=== PATIENT | male | born 1980 | race Native Hawaiian/Other Pacific Islander ===

== ENCOUNTER 2017-12-04 13:49 | Emergency (ER) | payer OTHER ==
[2017-12-04 14:24] VITALS: RESP 20
--- NOTE | 2017-12-04 15:36 | ED PDOC ---
HPI: General Adult Time Seen by Provider: 12/04/17 15:17 Chief Complaint (Nursing): Fever Chief Complaint (Provider): Fever, Headache, Ear Pain, Throat Pain History Per: Patient History/Exam Limitations: no limitations Onset/Duration Of Symptoms: Days (x2) Current Symptoms Are (Timing): Still Present Additional Complaint(s): 37 year old male, visiting from [place], presents to the ED for evaluation of tactile fever, cough, occipital headache, bilateral ear pain, and throat pain onset two days ago. He also reports associated chills and body aches. Patient states that he has been managing his symptoms with Ibuprofen 800 mg with his last dose yesterday night, but returning persistent symptoms prompted his visit. He notes a history of similar headaches secondary to a work related injury two years ago at work. Otherwise, (-) sick contact, (-) nausea, (-) vomiting, (-) visual changes, (-) dizziness, (-) abdominal pain, (-) chest pain , (-) rash, (-) weakness, (-) numbness. PMD: in [place] Past Medical History Reviewed: Historical Data, Nursing Documentation, Vital Signs Vital Signs: Last Vital Signs Temp 98.9 F 12/04/17 20:22 Pulse 75 12/04/17 20:23 Resp 20 12/04/17 20:22 BP 128/77 12/04/17 20:22 Pulse Ox 100 12/06/17 23:04 - Medical History PMH: No Chronic Diseases - Surgical History Surgical History: Hernia Repair - Family History Family History: States: Unknown Family Hx - Social History Current smoker - smoking cessation education provided: No Ex-Smoker (has not smoked in the last 12 months): Yes Alcohol: None Drugs: Denies - Home Medications Home Medications: Ambulatory Orders Medication Instructions Recorded Acetaminophen/Butalbital/Caf 1 tab PO Q6 PRN #12 tab 12/04/17 [Fioricet] Amoxicillin/Clavulanate [Augmentin 1 tab PO BID #14 tab 12/04/17 875 MG-125 MG] Naproxen 500 mg PO BID PRN #20 tab 12/04/17 - Allergies Allergies/Adverse Reactions: Allergies Allergy/AdvReac Type Severity Reaction Status Date / Time No Known Allergies Allergy Verified 12/04/17 14:21 Review of Systems ROS Statement: Except As Marked, All Systems Reviewed And Found Negative Constitutional: Positive for: Fever, Chills, Other (body aches) Eyes: Negative for: Vision Change ENT: Positive for: Ear Pain (bilateral), Throat Pain Cardiovascular: Negative for: Chest Pain Gastrointestinal: Negative for: Nausea, Vomiting, Abdominal Pain Skin: Negative for: Rash Neurological: Positive for: Headache (occipital). Negative for: Weakness, Numbness, Dizziness Physical Exam - Reviewed Nursing Documentation Reviewed: Yes Vital Signs Reviewed: Yes - Physical Exam Comments: GENERAL APPEARANCE: Patient is awake, alert, oriented x 3, appears uncomfortable. SKIN: Warm, dry; (-) cyanosis. EYES: (-) conjunctival pallor. ENMT: Mucous membranes moist. Airway patent: (-) stridor. Pharynx: (-) swelling, (+) erythema, (-) exudate, (-) hypertrophy. Right TM: (+) bulging, (+ ) erythematous. Left TM: unremarkable. (+) maxillary sinus tenderness NECK: Supple, FROM (-) tenderness, (-) stiffness, (-) lymphadenopathy. CHEST AND RESPIRATORY: (-) rhonchi, (-) rales, (-) wheezes; clear to auscultation, breath sounds even and non-labored. Speaking in full sentences. HEART AND CARDIOVASCULAR: (-) irregularity; (-) murmur, (-) gallop. ABDOMEN AND GI: Soft; (-) tenderness (-) guarding (-) distention. EXTREMITIES: (-) deformity NEURO AND PSYCH: Mental status as above. Cranial nerves grossly intact; strength symmetric. EOMI and painless. Tongue ad uvula midline. Speech clear, gait steady. (-) focal deficit (-) facial asymmetry - Laboratory Results Result Diagrams: 12/04/17 17:38 12/04/17 17:38 - ECG O2 Sat by Pulse Oximetry: 100 (RA) Pulse Ox Interpretation: Normal Medical Decision Making Medical Decision Making: Time: 1518 Initial Impression: pharyngitis, otitis media, cough, headache Initial Plan: --CXR --Tylenol 650 mg PO --Throat culture --Rapid strep test 1546 CXR FINDINGS: LUNGS: No active pulmonary disease. PLEURA: No significant pleural effusion identified. No pneumothorax apparent. CARDIOVASCULAR: Normal. OSSEOUS STRUCTURES: No significant abnormalities. VISUALIZED UPPER ABDOMEN: Normal. OTHER FINDINGS: None. IMPRESSION: No active disease. 1620 Patient now reporting nausea with x1 episode of NB/NB vomiting in the ED. Head CT without contrast ordered. IV access established. CMP, CBC with differential ordered. Normal saline 1L ordered along with Zofran 4mg IVP. 174 Patient has persistent vomiting, but denies abdominal pain. Reglan [address] read pending. 1746 CT HEAD FINDINGS: HEMORRHAGE: No intracranial hemorrhage. BRAIN: No mass effect or edema. No atrophy or chronic microvascular ischemic changes. VENTRICLES: Unremarkable. No hydrocephalus. CALVARIUM: Unremarkable. PARANASAL SINUSES: Mild bilateral ethmoid air cell and maxillary sinus mucosal thickening. MASTOID AIR CELLS: Unremarkable as visualized. No inflammatory changes. OTHER FINDINGS: None. IMPRESSION: No acute intracranial pathology. Moderate paranasal sinus disease. Toradol 30mg IVP ordered. 1814 Labs reviewed and grossly unremarkable. Rapid Strep negative. Repeat oral temp: 98.7. 1850 Augmentin PO ordered in light of PE, CT results consistent with sinusitis and otitis media. 194 Patient tolerating PO intake at this time. Reports complete resolution of nausea and improvement of headache, currently rated 08/01. 2009 Repeat HR: 75 Repeat BP: 128/77 Repeat Temp: 98.9 oral On re-evaluation, patient reports improvement of symptoms. On exam, patient remains AAOx3, in no acute distress. Neck is supple, lungs CTA, cardiac RRR, abdomen is soft and non-tender, neuro exam shows no focal findings. VSS, stable for discharge. Diagnostic results d/w the patient in great detail. Dx of migraine headache, nausea/vomiting, sinusitis, otitis media d/w the patient. Based on history, exam and diagnostic results plan will be for discharge and outpatient follow up with PMD upon return to [place]. Advised to follow up with primary care physician as directed. Advised to take medication as prescribed. Return to the emergency room at any time for any new or worsening symptoms. Patient states he fully agrees with and understands discharge instructions. States that he agrees with the plan and disposition. Verbalized and repeated discharge instructions and plan. I have given the patient opportunity to ask any additional questions. Scribe Attestation: Documented by Meghann Jennings, acting as a scribe for Lashay Clemons PA-C. Provider Scribe Attestation: All medical record entries made by the Scribe were at my direction and personally dictated by me. I have reviewed the chart and agree that the record accurately reflects my personal performance of the history, physical exam, medical decision making, and the department course for this patient. I have also personally directed, reviewed, and agree with the discharge instructions and disposition. Disposition - Clinical Impression Clinical Impression: Nausea and vomiting, Migraine headache, Sinusitis, Otitis media - Patient ED Disposition Is Patient to be Admitted: No Counseled Patient/Family Regarding: Studies Performed, Diagnosis, Need For Followup, Rx Given - Disposition Disposition: Routine/Home Disposition Time: 20:12 Condition: STABLE Additional Instructions: FOLLOW UP WITH PMD FOR FURTHER EVALUATION. RETURN TO ED WITH ANY NEW OR WORSENING SYMPTOMS. TAKE MEDICATION PRESCRIBED. Prescriptions: Acetaminophen/Butalbital/Caf [Fioricet] 1 tab PO Q6 PRN #12 tab PRN Reason: Headache Amoxicillin/Clavulanate [Augmentin 875 MG-125 MG] 1 tab PO BID #14 tab Naproxen 500 mg PO BID PRN #20 tab PRN Reason: PAIN, FEVER Instructions: Sinusitis in Adults, Ear Infections (Otitis Media), Nausea and Vomiting, Adult (DC), Migraine Headaches in Adults Forms: [employer] (Armenian) Print Language: TAMAZIGHT - POA Present On Arrival: None Results - Lab Results Lab Results: 12/04/17 12/04/17 12/04/17 17:38 17:38 16:23 WBC 7.9 RBC 4.81 Hgb 15.5 Hct 45.2 MCV 94.0 MCH 32.2 H MCHC 34.2 RDW 13.5 Plt Count 226 MPV 8.4 Neut % (Auto) 68.0 Lymph % (Auto) 19.3 L Pickett % (Auto) 10.5 H Eos % (Auto) 1.2 Baso % (Auto) 1.0 Neut # (Auto) 5.3 Lymph # (Auto) 1.5 Pickett # (Auto) 0.8 Eos # (Auto) 0.1 Baso # (Auto) 0.1 Sodium 138 Potassium 4.4 Chloride 99 Carbon Dioxide 25 Anion Gap 18 BUN 10 Creatinine 0.8 Est GFR ( Amer) > 60 Est GFR (Non-Af Amer) > 60 Random Glucose 107 Calcium 9.4 Total Bilirubin 1.0 AST 47 ALT 61 Alkaline Phosphatase 79 Total Protein 8.3 H Albumin 4.8 Globulin 3.5 Albumin/Globulin Ratio 1.4 Grp A Beta Strep Ag Negative
--- NOTE | 2017-12-04 15:48 | RAD ---
Date of service: 12/04/2017 HISTORY: cough, fever COMPARISON: No prior. TECHNIQUE: Chest PA and lateral FINDINGS: LUNGS: No active pulmonary disease. PLEURA: No significant pleural effusion identified. No pneumothorax apparent. CARDIOVASCULAR: Normal. OSSEOUS STRUCTURES: No significant abnormalities. VISUALIZED UPPER ABDOMEN: Normal. OTHER FINDINGS: None. IMPRESSION: No active disease.
[2017-12-04] MEDS ORDERED: Sodium Chloride 0.9% 1,000 ML IV SCH (16:30)
[2017-12-04 17:44] LABS: BASO # 0.1 K/uL (0.0-0.2); EOS # 0.1 K/uL (0.0-0.7); EOS % 1.2 % (0.0-4.0); HEMOGLOBIN 15.5 g/dL (12.0-18.0); LYMPH # 1.5 K/uL (1.0-4.3); LYMPH % 19.3 % (20.0-40.0); MEAN CORPUSCULAR HEMOGLOBIN 32.2 pg (27.0-31.0); MEAN CORPUSCULAR HGB CONC 34.2 g/dL (33.0-37.0); MEAN PLATELET VOLUME 8.4 fl (7.2-11.7); MONO # 0.8 K/uL (0.0-0.8); MONO % 10.5 % (0.0-10.0); NEUT # 5.3 K/uL (1.8-7.0); RBC 4.81 Mil/uL (4.40-5.90); RED CELL DISTRIBUTION WIDTH 13.5 % (11.5-14.5); WHITE BLOOD COUNT 7.9 K/uL (4.8-10.8)
--- NOTE | 2017-12-04 17:49 | CT ---
Date of service: 12/04/2017 PROCEDURE: CT HEAD WITHOUT CONTRAST. HISTORY: headache, vomiting COMPARISON: None available. TECHNIQUE: Axial computed tomography images were obtained through the head/brain without intravenous contrast. Radiation dose: Total exam DLP = 864.6 mGy-cm. This CT exam was performed using one or more of the following dose reduction techniques: Automated exposure control, adjustment of the mA and/or kV according to patient size, and/or use of iterative reconstruction technique. FINDINGS: HEMORRHAGE: No intracranial hemorrhage. BRAIN: No mass effect or edema. No atrophy or chronic microvascular ischemic changes. VENTRICLES: Unremarkable. No hydrocephalus. CALVARIUM: Unremarkable. PARANASAL SINUSES: Mild bilateral ethmoid air cell and maxillary sinus mucosal thickening. MASTOID AIR CELLS: Unremarkable as visualized. No inflammatory changes. OTHER FINDINGS: None. IMPRESSION: No acute intracranial pathology. Moderate paranasal sinus disease.
[2017-12-04 17:55] LABS: ALB/GLOB RATIO 1.4 (1.0-2.1); ALBUMIN 4.8 g/dL (3.5-5.0); ALT/SGPT 61 U/L (21-72); AST/SGOT 47 U/L (17-59); BLOOD UREA NITROGEN 10 mg/dl (9-20); CALCIUM 9.4 mg/dL (8.4-10.2); GFR AFRICAN-AMERICAN > 60; GFR NON-AFRICAN AMERICAN > 60
[2017-12-04] MEDS ORDERED: Amoxicillin-Clav 875-125 mg Tab PO ONE (20:02)
[2017-12-04 20:23] VITALS: BP 128/77; PULSE 75; TEMP 98.9; O2SAT 100
[2017-12-04] MEDS ORDERED: Amoxicillin-Clav 875-125 mg Tab PO SCH (21:00)
== END 2017-12-04 20:33 | disposition home or self-care (01) ==
LOC: H.ER 13:49
DX: G43.909 Migraine, unspecified, not intractable, without status migrainosus (principal); J32.9 Chronic sinusitis, unspecified; H66.91 Otitis media, unspecified, right ear; R11.2 Nausea with vomiting, unspecified; Z87.891 Personal history of nicotine dependence
CPT/HCPCS: 70450; 71046; 80053; 85025; 87070; 87430; 96374; 96375; 99284; J1885; J2405; J2765; J7030

== ENCOUNTER 2018-04-07 03:52 | Emergency (ER) | payer OTHER ==
[2018-04-07 04:13] VITALS: RESP 16; O2SAT 98
[2018-04-07] MEDS ORDERED: Sodium Chloride 0.9% 1,000 ML IV STA (04:15)
--- NOTE | 2018-04-07 04:31 | ED PDOC ---
HPI: Abdomen Time Seen by Provider: 04/07/18 04:02 Chief Complaint (Nursing): Abdominal Pain Chief Complaint (Provider): Vomiting and Abdominal Pain History Per: Patient History/Exam Limitations: no limitations Onset/Duration Of Symptoms: Hrs (x12) Current Symptoms Are (Timing): Still Present Additional Complaint(s): Eleazar Blood, a 38 year old [place] male with no significant past medical history, presents to the ED complaining of vomiting and abdominal pain onset x12 hours. He states that yesterday at 1600 he had abdominal cramps followed by x3 episodes of nonbloody diarrhea and x6 episodes of nonbilious nonbloody vomiting. He reports taking Pepcid, amoxicillin, and omeprazole with no relief. Patient denies fever, chest pain, cough, and shortness of breath. PCP: Adrian Bob Past Medical History Reviewed: Historical Data, Nursing Documentation, Vital Signs Vital Signs: Last Vital Signs Temp 98.3 F 04/07/18 04:11 Pulse 94 H 04/07/18 04:11 Resp 16 04/07/18 04:11 BP 131/93 H 04/07/18 04:11 Pulse Ox 98 04/07/18 04:11 - Medical History PMH: No Chronic Diseases - Surgical History Surgical History: Hernia Repair - Family History Family History: States: Unknown Family Hx - Social History Current smoker - smoking cessation education provided: No Alcohol: None Drugs: Denies - Immunization History Hx Tetanus Toxoid Vaccination: No Hx Influenza Vaccination: No Hx Pneumococcal Vaccination: No - Home Medications Home Medications: Ambulatory Orders Medication Instructions Recorded Acetaminophen/Butalbital/Caf 1 tab PO Q6 PRN #12 tab 12/04/17 [Fioricet] Amoxicillin/Clavulanate [Augmentin 1 tab PO BID #14 tab 12/04/17 875 MG-125 MG] Naproxen 500 mg PO BID PRN #20 tab 12/04/17 Dicyclomine [Bentyl] 20 mg PO Q12 PRN #20 tab 04/07/18 Ondansetron ODT [Zofran ODT] 4 mg PO Q6 PRN #8 odt 04/07/18 - Allergies Allergies/Adverse Reactions: Allergies Allergy/AdvReac Type Severity Reaction Status Date / Time No Known Allergies Allergy Verified 12/04/17 14:21 Review of Systems ROS Statement: Except As Marked, All Systems Reviewed And Found Negative Constitutional: Negative for: Fever Cardiovascular: Negative for: Chest Pain Respiratory: Negative for: Cough, Shortness of Breath Gastrointestinal: Positive for: Vomiting (x6 episodes nonbilious nonbloody), Abdominal Pain (x12 hours), Diarrhea (x3 episodes nonbloody) Physical Exam - Reviewed Nursing Documentation Reviewed: Yes Vital Signs Reviewed: Yes - Physical Exam Appears: Positive for: Uncomfortable ENT: Positive for: Other (mucous membranes dry) Cardiovascular/Chest: Positive for: Regular Rate, Rhythm. Negative for: Murmur Respiratory: Positive for: Normal Breath Sounds. Negative for: Respiratory Distress Gastrointestinal/Abdominal: Positive for: Tenderness (epigastric) Extremity: Negative for: Deformity - Laboratory Results Result Diagrams: 04/07/18 04:45 04/07/18 04:45 - ECG O2 Sat by Pulse Oximetry: 98 (RA) Pulse Ox Interpretation: Normal Medical Decision Making Medical Decision Making: Time: 414 Initial impression: 38 year old male with vomiting and diarrheal illness Initial plan: --labs --UA --Urine dipstick --bentyl 20 mg PO --zofran 4 mg IV 0554 -labs were reviewed and showed no significant clinical abnormalities. Patient reports marked improvement in symptoms. Diagnosis gastroenteritis. Upon provider reevaluation patient is feeling better, is medically stable, and requires no further treatment in the ED at this time. Patient will be discharged home. Counseling was provided and all questions were answered regarding diagnosis. There is agreement to discharge plan. Return if symptoms persist or worsen. ----- Scribe Attestation: Documented by Derian Keyes, acting as a scribe for Angelito Clark MD. Provider Scribe Attestation: All medical record entries made by the Scribe were at my direction and personally dictated by me. I have reviewed the chart and agree that the record accurately reflects my personal performance of the history, physical exam, medical decision making, and the department course for this patient. I have also personally directed, reviewed, and agree with the discharge instructions and disposition. Disposition - Clinical Impression Clinical Impression: Gastroenteritis - Patient ED Disposition Is Patient to be Admitted: No - Disposition Disposition: Routine/Home Disposition Time: 05:54 Condition: STABLE Prescriptions: Dicyclomine [Bentyl] 20 mg PO Q12 PRN #20 tab PRN Reason: abdominal pain/diarrhea Ondansetron ODT [Zofran ODT] 4 mg PO Q6 PRN #8 odt PRN Reason: Nausea/Vomiting Instructions: Gastroenteritis (ED) Forms: [employer] (Mongolian)
[2018-04-07 05:05] LABS: BASO % 0.7 % (0.0-2.0); EOS % 0.8 % (0.0-4.0); LYMPH # 1.8 K/uL (1.0-4.3); LYMPH % 32.2 % (20.0-40.0); MEAN CELL VOLUME 94.2 fl (80.0-94.0); MEAN CORPUSCULAR HEMOGLOBIN 31.8 pg (27.0-31.0); MEAN CORPUSCULAR HGB CONC 33.7 g/dL (33.0-37.0); MEAN PLATELET VOLUME 8.7 fl (7.2-11.7); MONO # 0.9 K/uL (0.0-0.8); MONO % 16.3 % (0.0-10.0); NEUT # 2.8 K/uL (1.8-7.0); RBC 4.73 Mil/uL (4.40-5.90); RED CELL DISTRIBUTION WIDTH 13.1 % (11.5-14.5); WHITE BLOOD COUNT 5.7 K/uL (4.8-10.8)
[2018-04-07 05:09] LABS: SQUAMOUS EPITHIAL < 1 /hpf (0-5); URINE BACTERIA RARE (<OCC); URINE BILIRUBIN NEGATIVE (NEGATIVE); URINE BLOOD SMALL (NEGATIVE); URINE CLARITY SLIGHTY-CLOUDY (Clear); URINE COLOR YELLOW (YELLOW); URINE GLUCOSE (UA) NEG (Normal); URINE LEUKOCYTE ESTERASE NEG Leu/uL (Negative); URINE PROTEIN 30 mg/dL (NEGATIVE); URINE UROBILINOGEN 0.2-1.0 mg/dL (0.2-1.0)
[2018-04-07 05:14] LABS: ALB/GLOB RATIO 1.4 (1.0-2.1); ALBUMIN 4.9 g/dL (3.5-5.0); ALT/SGPT 72 U/L (21-72); AST/SGOT 54 U/L (17-59); BLOOD UREA NITROGEN 9 mg/dl (9-20); CALCIUM 9.2 mg/dL (8.4-10.2); GFR NON-AFRICAN AMERICAN > 60; LIPASE 38 U/L (23-300)
[2018-04-07 06:34] VITALS: BP 117/65; PULSE 64; TEMP 98.1
== END 2018-04-07 06:25 | disposition home or self-care (01) ==
LOC: H.ER 03:52
DX: K52.9 Noninfective gastroenteritis and colitis, unspecified (principal)
CPT/HCPCS: 80053; 81003; 83690; 85025; 96360; 99283; J2405; J7030